=== PATIENT | female | born 1990 | race Caucasian/White ===

== ENCOUNTER 2017-04-26 10:08 | Emergency (ER) | payer BC ==
[~2017-04-26] VITALS: Ht 162.6 cm; Wt 80.3 kg
[~2017-04-26 10:08] MED LIST: ACYCLOVIR200 MG PO; FLAGYL500 MG PO; FLEXERIL10 MG PO; IBUPROFEN800 MG PO; KEFLEX500 MG PO; Levaquin PO; MACROBID100 MG PO; MILLIPRED DP5 MG PO; NAPROSYN500 MG PO; NORCO 5/3251 TABLET PO; PERCOCET 5/31 TABLET PO; PRENATAL TABLE1 EAC3 PO; SILVADENE20 GM TP; VICODIN,LORT1 TABLET PO; Vicodin,Lortab 5/500 PO; ZOFRAN4 MG PO
[2017-04-26 11:18] LABS: APPEARANCE CLEAR ((CLEAR)); BILIRUBIN NEGATIVE; BLOOD MODERATE; COLOR YELLOW ((YELLOW)); GLUCOSE (STRIP) NEGATIVE; KETONES NEGATIVE; LEUKOCYTES NEGATIVE; NITRITE NEGATIVE; PROTEIN (STRIP) NEGATIVE; SPECIFIC GRAVITY 1.013 (1.000-1.030); UROBILINOGEN 0.2 MG/DL (0.2-1.0)
[2017-04-26 11:20] LABS: BACTERIA NONE SEEN /HPF; EPITHELIAL CELLS 1+ /HPF; MUCUS TRACE /LPF; RED BLOOD CELLS 0-5 /HPF (0-5); WHITE BLOOD CELLS 0-5 /HPF (0-5)
[2017-04-26] MEDS ORDERED: NORCO 5/3251 TABLET PO (12:49)
[2017-04-26] MEDS ORDERED: FLEXERIL5 MG PO (12:49)
[2017-04-26 12:57] VITALS: BP 137/81
== END 2017-04-26 12:58 | disposition home or self-care (01) ==
LOC: EME 10:08
PROVIDERS: Physician Assistant
DX: M54.5 Low back pain (principal); F17.200 Nicotine dependence, unspecified, uncomplicated; Z88.6 Allergy status to analgesic agent; Z88.1 Allergy status to other antibiotic agents
CPT/HCPCS: 81003; 99281; 99284; J1885

== ENCOUNTER 2017-04-29 11:04 | Emergency (ER) | payer BC ==
[~2017-04-29] VITALS: Ht 162.6 cm; Wt 80.0 kg
[~2017-04-29 11:04] MED LIST changes: +FLEXERIL5 MG PO
[2017-04-29] MEDS ORDERED: VALIUM5 MG PO (14:00)
[2017-04-29 14:25] VITALS: BP 130/74
== END 2017-04-29 14:27 | disposition home or self-care (01) ==
LOC: EME 11:04
DX: M54.40 Lumbago with sciatica, unspecified side (principal); F17.200 Nicotine dependence, unspecified, uncomplicated; Z88.5 Allergy status to narcotic agent; Z88.1 Allergy status to other antibiotic agents
CPT/HCPCS: 72100; 99281; 99284; J1885; J8540